=== PATIENT | male | born 1960 | race Caucasian/White ===

== ENCOUNTER 2018-04-30 12:27 | Day surgery (SDC) | payer OTHER, SELFPAY ==
--- NOTE | 2018-04-30 | PATH_ITS ---
[facility] Accession Number: [id number] . 01 Material submitted: . PART A: CECAL POLYP PART B: LEFT COLON POLYP AT 40 PART C: RECTAL POLYP @ 10 . 02 Diagnosis: A. Cecal Polyp: Tubular adenoma. . B. Left Colon Polyp at 40 cm: Tubulovillous adenoma. Negative or high-grade dysplasia or malignancy. . C. Rectal Polyp at 10 cm: Hyperplastic polyp. MRV/05/07/2018 . 02 Electronically signed: . Willi Cope MD, PhD, Pathologist NPI- [id number] . 01 Gross description: . Received three formalin-filled containers each labeled with the patient's name. . A. In a container labeled cecal polyp, source confirmed per client, the specimen consists of three less than 0.1 to 0.3 cm portions of tissue and/or debris. Entirely submitted in cassette A. B. In a container labeled left colon polyp at 40, the specimen consists of a 0.6 cm portion of tissue. Entirely submitted in cassette B. C. In a container labeled rectal polyp at 10 are three 0.1 to 0.2 cm portions of tissue. Entirely submitted in cassette C. ([facility]:[id number]) /[facility] . 02 Pathologist provided ICD-10: D12.0, D12.6, K62.1 . 02 CPT . 425974, 218588, [id number] Performed at: 01 [facility] [address] [id number] MD Amari Morgan MD Phone: [phone] Performed at: 02 [facility] [address] [place] [id number] MD Andrea Nathan MD Phone: [phone]
[2018-04-30 12:47] VITALS: BMI 27.1
[2018-04-30 12:52] VITALS: BP 119/73; PULSE 60; RESP 16; TEMP 36.4; O2SAT 97
[2018-04-30] MEDS: SODIUM CHLORIDE 0.9% 1,000 ML 200 ML IV (13:01)
--- NOTE | 2018-04-30 13:10 | PM.HP.1 ---
History of Present Illness Date Patient Seen: 04/30/18 Time Patient Seen: 13:10 Chief complaint: [id number] SCREENING COLONOSCOPY Narrative: 57-year-old otherwise healthy male who presents today for colorectal screening. He has no new complaints or symptoms. Denies any nausea, vomiting, loss of appetite, unexplained weight loss, abdominal pain, change in bowel habits, diarrhea, constipation, melena, hematochezia, or bright red blood per rectum. Patient History Medical History Eczema (Acute) Gastroesophageal reflux disease (Acute) No significant past surgical history (Acute) Family & Social History Family History: Reviewed 04/30/18 by Pete Vance MD Social History: household members significant other No tobacco use Denies significant alcohol use Review of Systems Review of Systems All systems reviewed & are unremarkable except as noted in HPI and below Exam Vital Signs (past 8 hours): - 04/30/18 12:52 Temperature 97.6 F Pulse Rate 60 Respiratory Rate 16 Blood Pressure 119/73 Pulse Oximetry 97 Oxygen Delivery Method Room Air Narrative Exam Narrative: Well-nourished well-developed male in no acute distress lying comfortably on the gurney. Alert oriented x3. Significant other is at the bedside Sclera nonicteric Neck is supple Chest clear to auscultation bilaterally. Regular rate and rhythm. No murmurs, gallops, rubs Abdomen soft, nondistended, nontender, no masses Extremities show no clubbing, cyanosis, or edema Objective Labs Labs: No recent laboratory or radiographic studies review Assessment & Plan (1) Screening for colorectal cancer: Current visit: Yes Status: Acute Plan: Assessment/Plan Narrative: 57-year-old male requiring colorectal screening by age criteria. He is uncertain if he has a family history of colon cancer as he does not know his father's history. Nevertheless he requires colonoscopy. Technical details of the procedure were explained. Risks, benefits, alternatives were discussed. Risks including but not limited to sedation, aspiration, bleeding, pain, missed lesion, incomplete examination, need for further radiographic studies, colonic perforation, need for major abdominal surgery, and all attendant risks of major surgery were explained at length. All questions were answered to his satisfaction, and he voiced understanding. Consent was placed on the chart. We will proceed as planned.
--- NOTE | 2018-04-30 13:14 | PM.PREOP ---
Pre-operative Note Interval Note Pre-op Check: Yes History & Physical Reviewed by Physician, Yes Exam Performed and Yes History & Physical exam performed today by Physician Changes: No H&P completed within 30 days and has changed as indicated here:: Patient seen and examined today. History physical examination documented and placed on the chart today. Proceed with colonoscopy as planned. ASA Class (for procedural sedation): I
--- NOTE | 2018-04-30 14:22 | PM.OP.ENDO ---
Operative Date/Time/Diagnoses Date of procedure: 04/30/18 Time of procedure: 14:23 Pre-op diagnosis: Colorectal screening Post-op diagnosis: other (Colon polyps and diverticulosis) Procedure & Clinicians Study performed: 1. Sedation per surgeon 2. Colonoscopy with hot snare and cold forceps polypectomies Same procedure as scheduled: Yes Indications: 57-year-old male who presents for colorectal screening. He has no prior history of screening examinations. He requires examination due to age criteria. Colonoscopy is currently recommended. Surgeon: Pete Vance Procedure Notes SCOAP/Timeout: Yes Procedure in detail: After obtaining informed consent, the patient was brought to the GI suite and placed in the left lateral decubitus position on the examination table. After placement of appropriate monitors, the patient was given incremental doses of Versed and Fentanyl until an appropriate level of sedation was achieved. A time out was held per SCOAP protocol. A digital rectal examination was performed and did not reveal any masses or obstructing lesions. The colonoscope was gently passed into the patient's anus and the entire colon navigated to the level of the cecum with minimal difficulty. Once in the cecum, the scope was withdrawn being sure to go before and beyond all mucosal folds and prominences and get an excellent examination. The findings are noted above. At the level of the rectal vault, the scope was retroflexed and the internal anal canal was examined. The scope was straightened and air aspirated from the colon. The instrument was removed from the patient's body and the procedure was concluded. The patient was allowed to awaken from sedation without difficulty and taken to the post-anesthesia care unit in good condition. Scope withdrawal time: 13:57 min Sedation minutes: 20 Findings: diverticulosis and polyp Specimen(s): other (1. Cecal polyp 2. Left colon polyp at 40 cm 3. Rectal polyp at 10 cm) Complications: none Recommendations: Colonscopy in 5 years, High fiber diet and Will call with biopsy results Plan for aftercare: 1. Discharged home Follow up: as needed Disposition: PACU
[2018-04-30 14:30] VITALS: BP 134/82; PULSE 68; RESP 16; TEMP 37.6; O2SAT 97
[2018-04-30] MEDS: fentaNYL 250 MCG/5 ML INJ IV (14:33)
[2018-04-30] MEDS: MIDAZOLAM 5 MG/5 ML VIAL IV (14:35)
== END 2018-04-30 14:47 | disposition home or self-care (01) ==
PROVIDERS: PCP Family Medicine; Visit Provider Surgery
PROC: 0DJD8ZZ Inspection of Lower Intestinal Tract, Via Natural or Artificial Opening Endoscopic (ICD-10-PCS; CPT 45378; principal; 2018-04-30 14:00)
DX: Z12.11 Encounter for screening for malignant neoplasm of colon (principal); K57.30 Diverticulosis of large intestine without perforation or abscess without bleeding; D12.0 Benign neoplasm of cecum; D12.4 Benign neoplasm of descending colon; K62.1 Rectal polyp
CPT/HCPCS: 45385; 45380; 99152; J2250; J3010

== ENCOUNTER 2019-06-08 08:12 | Emergency (ER) | payer OTHER, SELFPAY ==
[2019-06-08 08:25] VITALS: BP 138/82; PULSE 63; RESP 10; TEMP 36.9; O2SAT 99
--- NOTE | 2019-06-08 08:37 | DI.RAD.S_ITS ---
PROCEDURE: XR CHEST 1V INDICATIONS: chest pain TECHNIQUE: One view of the chest was acquired. COMPARISON: None. FINDINGS: Surgical changes and devices: None. Lungs and pleura: Lungs are clear. No pleural effusions or pneumothorax. Mediastinum: Mediastinal contours appear normal. Heart size is normal. Bones and chest wall: No suspicious bony lesions. Overlying soft tissues appear unremarkable. IMPRESSION: No acute process. Dictated by: Royal Armstrong M.D. on 06/08/2019 at 9:02 Approved by: Royal Armstrong M.D. on 06/08/2019 at 9:03
--- NOTE | 2019-06-08 08:44 | ED.CHESTPAIN ---
HPI - Chest Pain General Chief Complaint: Chest Pain Stated Complaint: chest pain Time Seen by Provider: 06/08/19 08:29 Source: patient Mode of arrival: ambulatory Limitations: no limitations History of Present Illness HPI narrative: Patient is a 58-year-old male presents with left-sided chest pain. He says he did move a lot heavy stuff yesterday. However last night he started to notice some left-sided chest discomfort and some heaviness. He was able to go to sleep but woke up at 2:30 a.m. started to notice a little bit more. Does not seem to be any worse with exertion. When he does move his left shoulder his left shoulder hurts more. He he denies any nausea or diaphoresis MD complaint: chest pain Duration: constant Severity: mild Quality: heaviness Related Data Allergies Allergy/AdvReac Type Severity Reaction Status Date / Time No Known Drug Allergies Allergy Verified 06/08/19 08:35 Review of Systems Review of Systems Narrative: GENERAL: Denies chills, fatigue, malaise, fever, sweats, travel HEENT: Denies sinus pain, ear pain, sore throat, difficulty swallowing, neck pain RESPIRATORY: Denies dyspnea, cough, wheezing, hemoptysis, sputum. CARDIOVASCULAR: See HPI GASTROINTESTINAL: Denies nausea, vomiting, abdominal pain, diarrhea, constipation, melena. : Denies dysuria, frequency, incontinence, hematuria, urinary retention, flank pain. MUSCULOSKELETAL: Denies weakness, joint pain, or bony pain SKIN: No rash, no erythema, no pruritus NEUROLOGIC: Denies weakness, dizziness, headache, numbness, change in speech, confusion PSYCHIATRIC: No concerning psychosocial issues. 12 point review of systems is negative except for those stated above and HPI [facility] Social History household members: significant other Smoking Status: Never smoker Exam Initial Vital Signs Initial Vital Signs: Vital Signs Temperature 98.5 F 06/08/19 08:25 Pulse Rate 63 06/08/19 08:25 Respiratory Rate 10 L 06/08/19 08:25 Blood Pressure 138/82 06/08/19 08:25 Pulse Oximetry 99 06/08/19 08:25 GENERAL: Well-appearing, well-nourished and in no acute distress. HEENT: Head atraumatic,EOMI, pupils reactive, face symmetric, moist mucous membranes CARDIOVASCULAR: Regular rate and rhythm without murmurs, rubs or gallops. RESPIRATORY: Breath sounds equal bilaterally, no wheezes rales or rhonchi. ABDOMEN: Soft, nontender. Normoactive bowel sounds all 4 quadrants. No guarding or rebound. EXTREMITIES: Normal range of motion, no clubbing or edema. Neurovascularly intact NEUROLOGICAL: Alert and oriented x4.Normal gait and speech. Cranial nerves II through XII grossly intact. SKIN: Warm, dry, no laceration, no petechiae, no rashes or lesions. Scores HEART Score Heart Score history: Slightly Suspicious Heart Score EKG: Normal Heart Score Age: 45-64 years old Heart Score risk factors: No known risk factors Heart Score troponin: < or = to normal limit Heart Score Total: 1 Course Orders Ordered: ED Orders 06/08/19 08:21 EKG-12 Lead Routine 06/08/19 08:30 Complete Blood Count AUTO DIFF Stat Comprehensive Metabolic Panel Stat Lipase Stat Partial Thromboplastin Time Stat Prothrombin Time INR Stat Troponin & CK Cardiac Panel Stat 06/08/19 08:37 XR chest 1V Stat 06/08/19 09:58 EKG-12 Lead Routine Discontinued Medications Aspirin (Aspirin Chew) 324 mg PO NOW ONE Stop: 06/08/19 08:38 Last Admin: 06/08/19 09:49 Dose: 324 mg Documented by: BTONER Vital Signs Vital signs: Vital Signs - 8 hr 06/08/19 08:25 06/08/19 10:22 Temperature 98.5 F Pulse Rate 63 54 L Respiratory Rate 10 L 18 Blood Pressure 138/82 Blood Pressure [Left Arm] 136/73 Pulse Oximetry 99 98 MDM - Chest Pain Lab Data Attestation: I reviewed the patient's lab results. Result diagrams: 06/08/19 08:30 06/08/19 08:30 Labs: Lab Results 06/08/19 06/08/19 06/08/19 Range/Units 08:30 08:30 08:30 WBC 7.8 (4.5-11.0) X10^3/uL RBC 4.77 (4.5-5.9) X10^6/uL Hgb 15.4 (13.5-17.5) g/dL Hct 43.8 (41-53) % MCV 91.8 (80-100) fL MCH 32.3 (26-34) PG MCHC 35.2 (30-36) % RDW 13.3 (11.6-14.8) % Plt Count 219 (150-400) X10^3/uL Neut % (Auto) 64.8 (50-75) % Lymph % (Auto) 27.0 (25-40) % Dade % (Auto) 6.3 (3-14) % Eos % (Auto) 1.1 L (2-4) % Baso % (Auto) 0.8 (0-2) % Neut # (Auto) 5000 (7123-1618) /uL Lymph # (Auto) 2100 (1817-5184) /uL Dade # (Auto) 500 (0-900) /uL Eos # (Auto) 100 (0-450) /uL Baso # (Auto) 100 (0-100) /uL PT 11.6 (10.1-12.7) SECONDS INR 1.0 (0.9-1.3) APTT 31 (26.4-36.2) SECONDS Sodium 139 (137-145) mmol/L Potassium 4.5 (3.4-5.1) mmol/L Chloride 103 (98-107) mmol/L Carbon Dioxide 28 (22-32) mmol/L BUN 16 (9-20) mg/dL Creatinine 0.90 (0.66-1.25) mg/dL Estimated GFR > 60.0 (>60) mL/min BUN/Creatinine Ratio 17.8 (6-22) Glucose 142 H (70-100) mg/dL Calcium 9.6 (8.4-10.2) mg/dL Total Bilirubin 1.0 (0.2-1.3) mg/dL AST 34 (17-59) IU/L ALT 44 (21-72) IU/L Alkaline Phosphatase 68 (38-126) U/L Total Creatine Kinase 174 H (55-170) U/L CK-MB (CK-2) 1.02 (<2.37) ng/mL CK-MB (CK-2) Rel Index 0.6 L (1.5-5.0) % Troponin I < 0.012 (0.01-0.034) ng/mL Total Protein 7.4 (6.3-8.2) g/dL Albumin 4.6 (3.5-5.0) g/dL Globulin 2.8 (1.7-4.1) g/dL Albumin/Globulin Ratio 1.6 (1.0-2.8) Lipase 110 (23-300) U/L Urine Dip Bedside Urine Glucose Negative Bedside Urine Bilirubin - Negative Bedside Urine Ketone - Negative Urine Specific [place] 1.020 Bedside Urine Occult Blood - Negative Bedside Urine pH 5.5 Bedside Urine Protein - Negative Bedside Urine Urobilinogen - Negative Bedside Urine Nitrite - Negative Bedside Urine Leukocytes - Negative Esterase ECG Data Attestation: I personally reviewed and interpreted this ECG as follows: Prior ECG tracings: not available for review Interpretation: EKG 1. Normal sinus rhythm rate 56 p.r. interval 183 QRS [address] changes EKG 2. Sinus rhythm 51 no changes from prior Some early positional repolarization noted on both EKGs MDM Narrative Medical decision making narrative: Patient has been chest pain-free in the emergency department. Pain is slightly worse when he moves his shoulder. He has a low heart score at this time I recommend outpatient follow-up with his PCP. He is established with the clinic however his physician recently retired. I discussed all findings with the patient, Education has been performed regarding treatment plan, diagnosis, warning signs and symptoms and all concerns have been addressed. Verbally agree with and understood all of the above. Discharge Plan Departure Patient Disposition: Home Clinical Impression: Atypical chest pain Discharge Date/Time: 06/08/19 10:39 Instructions: DI for Atypical Chest Pain Activity Restrictions/Additional Instructions: *You have been diagnosed with atypical chest *What to do: I recommend outpatient stress test with her PCP. If your chest pain should worsen or change in nature you need to return to the emergency department me *Continue to take medications as directed *Follow up with your primary care provider in 2-3 days *Return to ER if you should have new or worsening or changing chest pain or discomfort shortness of breath with exertion weakness numbness tingling or any new, worsening or concerning symptoms Referrals: Jaret Espinal MD [Primary Care Provider] - Yamilka Biswas MD [Non-Staff] -
[2019-06-08 08:50] LABS: Add Manual Diff / Slide Review NO; Basophils Absolute Auto 100 /uL (0-100); Basophils Percent Auto 0.8 % (0-2); Eosinophils Absolute Auto 100 /uL (0-450); Eosinophils Percent Auto 1.1 % (2-4); Hematocrit 43.8 % (41-53); Hemoglobin 15.4 g/dL (13.5-17.5); Lymphocytes Absolute Auto 2100 /uL (1100-4500); Mean Corpuscular HGB Conc 35.2 % (30-36); Mean Corpuscular Hemoglobin 32.3 PG (26-34); Mean Corpuscular Volume 91.8 fL (80-100); Monocytes Absolute Auto 500 /uL (0-900); Monocytes Percent Auto 6.3 % (3-14); Neutrophils Absolute Auto 5000 /uL (1500-7000); Neutrophils Percent Auto 64.8 % (50-75); Platelet Count 219 X10^3/uL (150-400); Red Blood Cell Count 4.77 X10^6/uL (4.5-5.9); Red Cell Distribution Width 13.3 % (11.6-14.8); White Blood Cell Count 7.8 X10^3/uL (4.5-11.0)
[2019-06-08 08:53] LABS: Prothrombin Time 11.6 SECONDS (10.1-12.7)
[2019-06-08 08:56] LABS: PTT Partial Thromboplastin Tim 31 SECONDS (26.4-36.2)
[2019-06-08 08:57] LABS: Alanine Aminotransferase 44 IU/L (21-72); Albumin 4.6 g/dL (3.5-5.0); Albumin Globulin Ratio 1.6 (1.0-2.8); Alkaline Phosphatase 68 U/L (38-126); Aspartate Aminotransferase 34 IU/L (17-59); BUN Creatinine Ratio 17.8 (6-22); Blood Urea Nitrogen 16 mg/dL (9-20); Calcium 9.6 mg/dL (8.4-10.2); Carbon Dioxide 28 mmol/L (22-32); Chloride 103 mmol/L (98-107); Creatine Kinase 174 U/L (55-170); Estimated Glomerular Filt Rate > 60.0 mL/min (>60); Globulin 2.8 g/dL (1.7-4.1); Glucose 142 mg/dL (70-100); HEMOLYSIS < 15 (0-50); Lipase 110 U/L (23-300); Potassium 4.5 mmol/L (3.4-5.1); Sodium 139 mmol/L (137-145); Total Protein 7.4 g/dL (6.3-8.2)
[2019-06-08 09:09] LABS: Troponin I < 0.012 ng/mL (0.01-0.034)
[2019-06-08 09:13] LABS: CKMB % Relative Index 0.6 % (1.5-5.0); Creatine Kinase MB 1.02 ng/mL (<2.37)
[2019-06-08] MEDS: ASPIRIN 81 MG CHEW TAB 324 MG PO (09:49)
[2019-06-08 10:22] VITALS: BP 136/73; PULSE 54; RESP 18; O2SAT 98
== END 2019-06-08 10:39 | disposition home or self-care (01) ==
PROVIDERS: Emergency Provider Emergency Medicine; PCP Family Medicine
DX: R07.89 Other chest pain (principal)
CPT/HCPCS: 36591; 71045; 80053; 81003; 82550; 82553; 83690; 84484; 85025; 85610; 85730; 93005; 93010; 93041; 99283; 99285

== ENCOUNTER → 2019-06-17 11:19 | Outpatient (CLI) | payer OTHER, SELFPAY ==
--- NOTE | 2019-06-17 | DI.RAD.S_ITS ---
PROCEDURE: XR CALCANEOUS LT MIN 2V INDICATIONS: left heel pain TECHNIQUE: Two views of the calcaneus were acquired. COMPARISON: None. FINDINGS: Bones: No fractures or dislocations. No suspicious bony lesions. Soft tissues: No suspicious calcifications. Achilles tendon appears normal. IMPRESSION: Normal plain films of the calcaneus. Dictated by: Orion Parson M.D. on 06/17/2019 at 12:56 Approved by: Orion Parson M.D. on 06/17/2019 at 12:56
== END ==
PROVIDERS: PCP Student in an Organized Health Care Education/Training Program; Visit Provider Student in an Organized Health Care Education/Training Program
DX: M79.672 Pain in left foot (principal)
CPT/HCPCS: 73650

== ENCOUNTER → 2019-08-19 13:49 | Outpatient (CLI) | payer OTHER, SELFPAY ==
--- NOTE | 2019-08-19 | DI.NM.S_ITS ---
PROCEDURE: NM JAVIER PERF SPECT REST & STR Rest and exercise myocardial perfusion SPECT with gated imaging and ejection fraction RADIOPHARMACEUTICAL: 26.7 mCi Tc-99m sestamibi IV at rest and 23.9 mCi Tc-99m sestamibi IV at peak exercise. A two day-protocol was performed. INDICATIONS: CHEST PAIN TECHNIQUE: Radiopharmaceutical was injected at peak stress test, and also at rest. SPECT images were obtained. SPECT myocardial perfusion images were displayed in short axis, horizontal long axis, and vertical long axis views. Gated images were reviewed using [employer] software. COMPARISON: None. CARDIAC STRESS: A standard Misael treadmill exercise tolerance test was performed by the patient under the supervision of an attending staff. The patient exercised for 10 minutes and 28 seconds; functional aerobic impairment (CHUNG) is -12%. Hemodynamic data: There is normal blood pressure and heart rate response to exercise stress. Patient achieved 95% of maximum predicted heart rate at peak exercise. Symptoms: Patient denied chest pain during exercise. EKG: No diagnostic EKG changes of ischemia; occasional PVCs. FINDINGS: Raw data: There is good myocardial labeling by radiotracer. No significant motion artifacts. Left ventricle function: Gated images demonstrate normal left ventricle wall thickening. No segmental wall motion abnormality. No transient ischemic dilation; TID is 0.99 (normal less than 1.3). The left ventricle resting end-diastolic volume is 121 mL. Left ventricle stress ejection fraction is 62%; normal values are above 45%. Myocardial perfusion: There is normal distribution of activity in the left and right ventricular myocardium. No fixed or reversible perfusion defects. IMPRESSION: Low risk, normal treadmill nuclear stress test 1) No perfusion evidence of ischemia or infarction. 2) Normal left ventricular size, wall motion, and systolic function (EF post stress 62%). 3) No ECG evidence of ischemia. 4) No angina during the study. 5) Good exercise tolerance (12.8 METS, CHUNG -12%). Target heart rate achieved. Appropriate hemodynamic response to exercise. 6) No prior nuclear stress test available for comparison. Dictated by: Aron Mcmanus MD on 08/20/2019 at 14:21 Approved by: Aron Mcmanus MD on 08/20/2019 at 14:25
--- NOTE | 2019-08-19 15:11 | PM.TREADMILL ---
Cardiac Stress Test Report Referral & Results Date Patient Seen: 08/19/19 Requesting provider: Yamilka Biswas Indication: Chest pain Rest ECG: Unremarkable except for frequent PVCs Procedure Note: Today following both written and verbal informed consent the patient was exercised according to a standard Misael protocol patient went for a total of 10 minutes 28 seconds achieving a maximum heart rate of 155 maximum systolic blood pressure of 200. This is approximately 12.8 METS. Exercise was terminated at this point because of targets were met. Patient was also given Cardiolite through a previously started Hep-Lock IV by the diagnostic imaging staff approximately 1 minute prior to the cessation of exercise. Patient did have frequent PVCs that seem to almost completely disappear once heart rate hit 128 or so. However there is still a few PVCs even beyond that. They did not really return as patient was slowing in recovery No ST-T segment changes identified Normal heart rate and blood pressure response to exercise Functional aerobic impairment rates about-12% on the active scale or 12% better than average Impression: No ECG evidence of ischemia Please see perfusion imaging report as well Please note: Actual ECG tracings can be found in the PACS system.
== END ==
PROVIDERS: PCP Student in an Organized Health Care Education/Training Program; Visit Provider Student in an Organized Health Care Education/Training Program
DX: R07.9 Chest pain, unspecified (principal)
CPT/HCPCS: 78452; 93016; 93017; 93018; A9502